=== PATIENT | male | born 1950 | race Caucasian/White ===

== ENCOUNTER → 2016-09-20 11:57 | Outpatient (CLI) | payer MEDICARE, OTHER ==
[2015-08-17 12:33] VITALS: BMI 30.4
[~2016-09-20 11:57] MED LIST: BAYER CHEWABLE81 MG; DIABETA5 MG PO; GABAPENTIN100 MG PO; GLIMEPIRIDE1 MG PO; GLUCOPHAGE1000 MG PO; GLUCOPHAGE500 MG PO; MULTIPLE VITAMI1 TA1 PO; OMEPRAZOLE20 M1 PO; PLAVIX75 MG PO; PRINIVIL20 MG PO; TRADJENTA5 MG PO; VICTOZA0.6 MG/0.1 SQ; VITAMIN B-121000 MCG PO; ZOCOR40 MG PO
[2016-09-20 12:29] LABS: CREATININE - SERUM 0.8 mg/dL (0.6-1.3)
== END | disposition home or self-care (01) ==
LOC: D.LAB 11:15 → D.MRI 13:00
PROVIDERS: Family Medicine Adult Medicine
DX: R42 Dizziness and giddiness (principal)